=== PATIENT | female | born 1995 | race Caucasian/White ===

== ENCOUNTER 2018-09-30 18:08 | Emergency (ER) | payer OTHER ==
[~2018-09-30] VITALS: Ht 162.6 cm; Wt 72.7 kg
[2018-09-30] MEDS ORDERED: NS 1,000 ML IV ONE (18:45)
[2018-09-30 19:00] LABS: BASO % 0.3 % (0.0-1.0); EOS # 0.1 10^3/uL (0.0-0.50); EOS % 0.7 % (0.0-3.0); HEMATOCRIT 41.3 % (36.0-47.0); HEMOGLOBIN 13.6 g/dl (12.0-15.5); LYMPH # 1.7 10^3/uL (1.5-6.5); LYMPH % 22.1 % (24.0-44.0); MEAN CORPUSCULAR HEMOGLOBIN 29.1 pg (27.0-33.0); MEAN CORPUSCULAR HGB CONC 32.9 g/dl (32.0-36.5); MEAN CORPUSCULAR VOLUME 88.2 fl (80.0-96.0); MONO # 0.5 10^3/uL (0.0-0.8); MONO % 6.2 % (0.0-5.0); NEUTROPHILS # 5.3 10^3/uL (1.8-7.7); NEUTROPHILS % 70.4 % (36.0-66.0); PLATELET COUNT, AUTOMATED 193 10^3/uL (150-450); RED BLOOD COUNT 4.68 10^6/uL (4.00-5.40); WHITE BLOOD COUNT 7.5 10^3/uL (4.0-10.0)
[2018-09-30 19:28] LABS: ALBUMIN 3.5 GM/DL (3.2-5.2); ALT/SGPT 13 U/L (12-78); BILIRUBIN,DIRECT 0.1 MG/DL (0.0-0.2); BILIRUBIN,TOTAL 0.3 MG/DL (0.2-1.0); BLOOD UREA NITROGEN 10 MG/DL (7-18); CALCIUM LEVEL 9.3 MG/DL (8.5-10.1); CARBON DIOXIDE LEVEL 27 MEQ/L (21-32); CHLORIDE LEVEL 105 MEQ/L (98-107); CREATININE FOR GFR 0.67 MG/DL (0.55-1.30); GLUCOSE, FASTING 80 MG/DL (70-100); LIPASE 78 U/L (73-393); POTASSIUM SERUM 4.2 MEQ/L (3.5-5.1); SODIUM LEVEL 139 MEQ/L (136-145); TOTAL PROTEIN 7.6 GM/DL (6.4-8.2)
[2018-09-30] MEDS ORDERED: ISOVUE-370 76% 100ML VIAL (Q9967) As Ordered ONE (19:41)
--- NOTE | 2018-09-30 20:40 | REPVR ---
EXAM: CT Abdomen and Pelvis With Contrast EXAM DATE/TIME: 09/30/2018 7:54 PM CLINICAL HISTORY: 22 years old, female; Pain; Abdominal pain; Generalized; Additional info: Abd pain/blood in stool TECHNIQUE: Axial computed tomography images of the abdomen and pelvis with intravenous contrast. All CT scans at this facility use at least one of these dose optimization techniques: automated exposure control; mA and/or kV adjustment per patient size (includes targeted exams where dose is matched to clinical indication); or iterative reconstruction. Coronal and sagittal reformatted images were created and reviewed. CONTRAST: 100 ml of ISOVUE 370 administered intravenously. COMPARISON: No relevant prior studies available. FINDINGS: Lower thorax: Mild hypoventilatory change in dependent portion of the lungs, right side greater than left. ABDOMEN: Liver: Normal. No mass. Gallbladder and bile ducts: Surgical clips noted in the gallbladder fossa. The gallbladder is not seen as a separate structure. Pancreas: Normal. No ductal dilation. Spleen: Normal. No splenomegaly. Adrenals: Normal. No mass. Kidneys and ureters: Normal. No hydronephrosis. Stomach and bowel: A moderate amount of stool is seen throughout the colon. No bowel wall thickening. Appendix: No evidence of appendicitis. PELVIS: Bladder: Unremarkable as visualized. Reproductive: Unremarkable as visualized. ABDOMEN and PELVIS: Intraperitoneal space: Normal. No free air. No significant fluid collection. Bones/joints: No acute fracture. No dislocation. Soft tissues: Unremarkable. Vasculature: There is an accessory left retroaortic renal vein Lymph nodes: Normal. No enlarged lymph nodes. IMPRESSION: Moderate amount of stool throughout the colon. Electronically signed by: Kamryn Marion On 09/30/2018 20:40:14 PM
[2018-09-30] MEDS ORDERED: COLA100C5 PO (21:12)
[2018-09-30] MEDS ORDERED: MIRA3350 PO (21:12)
[2018-09-30 21:30] VITALS: BP 117/68
== END 2018-09-30 21:32 | disposition home or self-care (01) ==
LOC: M ED 18:08
DX: K59.00 Constipation, unspecified (principal); K62.5 Hemorrhage of anus and rectum; R10.9 Unspecified abdominal pain; R55 Syncope and collapse
CPT/HCPCS: 74177; 80048; 80076; 81001; 81025; 83690; 85025; 96360; 96361; 99284; Q9967